=== PATIENT | male | born 1965 | race American Indian/Alaskan Native ===

== ENCOUNTER 2016-03-21 08:10 | Emergency (ER) | payer SELFPAY ==
[2016-03-21 08:31] VITALS: BP 148/104
--- NOTE | 2016-03-21 09:21 | Emergency Department Report ---
HPI - General Chief Complaint: Upper Respiratory Infection Time Seen by Provider: 03/21/16 08:49 - HPI HPI: History 1-year-old male presents today with chills, sore throat, left ear pain and left mild soreness 3 days. Patient states that he worked in the [employer] prior to symptoms. Denies fever, chills, shortness of breath, abdominal pain, chest pain. Denies sick contacts. Tried TheraFlu without relief. ED Past Medical Hx - Past Medical History Previous Medical History?: No - Surgical History Past Surgical History?: No - Social History Smoking Status: Current Every Day Smoker Substance Use Type: Alcohol - Medications Home Medications: Home Medications Medication Instructions Recorded Confirmed Last Taken Type Amoxicillin [Amoxicillin TAB] 875 mg PO BID #20 tablet 03/21/16 Unknown Rx Ibuprofen [Motrin 600 MG tab] 600 mg PO Q8H PRN #30 tablet 03/21/16 Unknown Rx ED Review of Systems ROS: Stated complaint: FLU SYMPTOMS/EAR INFECTION Other details as noted in HPI Constitutional: chills. denies: fever Eyes: denies: eye pain ENT: ear pain, throat pain, congestion Respiratory: denies: cough, shortness of breath, wheezing Cardiovascular: denies: chest pain, palpitations Endocrine: no symptoms reported Gastrointestinal: denies: abdominal pain, nausea, vomiting Neurological: denies: headache, weakness Physical Exam - Physical Exam Vital Signs: Vital Signs 03/21/16 08:28 Temperature 97.9 F Pulse Rate 99 H Respiratory 16 Rate Blood Pressure 148/104 Blood Pressure 148/104 [Right] O2 Sat by Pulse 99 Oximetry Physical Exam: GENERAL: The patient is well-developed and well-nourished. Patient is in NAD. HEAD: Normocephalic. Atraumatic. EYES: PERRL. EARS: Right external auditory canals and tympanic membranes clear. Erythematous and bulging left tympanic membrane. NOSE: Normal nasal mucosa with minimal nasal drainage. THROAT: No erythema, swelling or exudates. NECK: Supple, nontender, without lymphadenopathy. CHEST/LUNGS: Clear to auscultation throughout. HEART/CARDIOVASCULAR: Regular rate and rhythm. No murmurs, rubs or gallops. ABDOMEN: Abdomen is soft, nontender. No guarding or rebound tenderness. EXTREMITIES: Full range of motion. Peripheral pulses intact. Capillary refill less than 2 seconds. NEURO: Alert and oriented x 3. Normal gait. ED Course Vital Signs 03/21/16 08:28 Temperature 97.9 F Pulse Rate 99 H Respiratory 16 Rate Blood Pressure 148/104 Blood Pressure 148/104 [Right] O2 Sat by Pulse 99 Oximetry ED Medical Decision Making - Lab Data Vital Signs 03/21/16 08:28 Temperature 97.9 F Pulse Rate 99 H Respiratory 16 Rate Blood Pressure 148/104 Blood Pressure 148/104 [Right] O2 Sat by Pulse 99 Oximetry - Medical Decision Making 50-year-old male presents today with left otitis media. Patient is in no acute distress at this time. He will be discharged home and is encouraged to follow up with a primary care provider. He will be sent home on amoxicillin and is encouraged to return to the emergency room for any worsening symptoms. Critical care attestation.: If time is entered above; I have spent that time in minutes in the direct care of this critically ill patient, excluding procedure time. ED Disposition Clinical Impression: Otitis media Qualifiers: Otitis media type: serous Laterality: left Chronicity: acute Recurrence: not specified as recurrent Qualified Code(s): H65.02 - Acute serous otitis media, left ear Disposition: DISCHARGED TO HOME OR SELFCARE Is pt being admited?: No Does the pt Need Aspirin: No Condition: Stable Instructions: Otitis Media (ED) Additional Instructions: Follow-up with primary care provider. Return to the emergency department if symptoms worsen. Prescriptions: Amoxicillin [Amoxicillin TAB] 875 mg PO BID #20 tablet Ibuprofen [Motrin 600 MG tab] 600 mg PO Q8H PRN #30 tablet PRN Reason: Pain Referrals: PRIMARY CARE, [Primary Care Provider] - 3-5 Days [facility] [Outside] - 3-5 Days Forms: Work/School Release Form(ED) Time of Disposition: 09:22
== END 2016-03-21 09:31 | disposition home or self-care (01) ==
LOC: ED 08:10
DX: H65.02 Acute serous otitis media, left ear (principal); F17.200 Nicotine dependence, unspecified, uncomplicated
CPT/HCPCS: 99282